=== PATIENT | female | born 1970 | race Caucasian/White ===

== ENCOUNTER → 2017-12-14 08:00 | Outpatient (CLI) | payer BC, SELFPAY ==
--- NOTE | 2017-12-14 08:04 | BI_ITS ---
MAMMOGRAPHY - BILATERAL SCREENING REASON FOR EXAM: Female, 47 years old. Routine annual screening examination. PERTINENT HISTORY: Non-contributory. TECHNIQUE: Digital bilateral breast abby (3D mammographic acquisition) in the CC and MLO projections. 2-D mediolateral oblique (MLO) and craniocaudad (CC) views of both breasts were obtained. CAD: Full Field Digital Mammography with Computer Added Detection was performed. COMPARISON: None. Baseline examination. FINDINGS: Breast Composition: The breasts are heterogeneously dense, which may obscure small masses. There is a 6.8 mm nodular density in the deep aspect of the right breast as seen on the MLO view only. This abuts the pectoralis muscle. This is not seen on the craniocaudad view. The patient will be called for additional views of the right breast including the exaggerated craniocaudad view and 90 degree lateral view. No other significant abnormalities are identified. BI/SCREENING MAMM (CAD), BILAT IMPRESSION: Nodular density seen in the deep portion of the right breast as described. The patient will be recalled for additional views including exaggerated craniocaudad view and 90 degree lateral view. Recall Side: Right Breast ASSESSMENT CATEGORY: BIRADS Category 0: Incomplete. Need additional imaging evaluation. A letter regarding these results will be sent to the patient by the facility within 30 days. Approximately 10% of breast cancers are not detected by mammography. A normal mammogram should not delay biopsy of a clinically suspicious abnormality. [id number] Electronically Signed: Yung Merino MD at 11:29 EDT Tel [phone], Service support ,
== END ==
PROVIDERS: Visit Provider Obstetrics & Gynecology
DX: Z12.31 Encounter for screening mammogram for malignant neoplasm of breast (principal)
CPT/HCPCS: 77063; 77067

== ENCOUNTER → 2017-12-22 09:00 | Outpatient (CLI) | payer BC, SELFPAY ==
--- NOTE | 2017-12-22 09:05 | BI_ITS ---
MAMMOGRAPHY - UNILATERAL DIAGNOSTIC: RIGHT BREAST REASON FOR EXAM: Female, 47 years old. Abnormal screening mammogram. PERTINENT HISTORY: Questionable nodular density in the deep aspect of the right breast. TECHNIQUE: 90 degree lateral as well as compression spot views and exaggerated craniocaudad views were obtained. CAD: Full Field Digital Mammography with Computer Added Detection was performed. COMPARISON: Comparison is made with prior mammogram dated December 14, 2017. FINDINGS: Breast Composition: The breasts are heterogeneously dense, which may obscure small masses. Once again, there is a 7 mm nodular density in the deep portion of the right breast at the level of the pectoralis musculature. Correlation with ultrasound is recommended. No other significant abnormalities are identified. BI/DIAG MAMM W/CAD, UNILAT IMPRESSION: Persistent small nodule seen in the deep portion of the right breast as described. Correlation with ultrasound is recommended. ASSESSMENT CATEGORY: BIRADS Category 0: Incomplete. Need additional imaging evaluation. A letter regarding these results will be sent to the patient by the facility within 30 days. Approximately 10% of breast cancers are not detected by mammography. A normal mammogram should not delay biopsy of a clinically suspicious abnormality. Electronically Signed: Yung Merino MD at 10:58 EDT Tel [phone], Service support ,
--- NOTE | 2017-12-22 09:08 | US_ITS ---
STUDY: ULTRASOUND BREAST - RIGHT REASON FOR EXAM: Female, 47 years old. Abnormal screening mammogram. TECHNIQUE: Axial and longitudinal images of the RIGHT breast were performed with a high resolution ultrasound transducer. COMPARISON: Comparison is made with prior mammogram done earlier today and December 14, 2017. FINDINGS: RIGHT Breast: The deep portion of the right breast was examined by ultrasound. There are several mildly dilated ducts in the deep portion of the breast. No solid or cystic mass lesion is seen. US/Breast Limited Unilateral IMPRESSION: Dilated ducts in the deep breast tissue. Routine annual mammographic follow-up is recommended. ASSESSMENT CATEGORY: BIRADS Category 2: Benign. A letter regarding these results will be sent to the patient by the facility within 30 days. Electronically Signed: Yung Merino MD at 10:59 EDT Tel [phone], Service support ,
== END ==
PROVIDERS: Visit Provider Obstetrics & Gynecology
DX: R92.2 Inconclusive mammogram (principal)
CPT/HCPCS: 76642; 77065

== ENCOUNTER → 2018-05-17 09:54 | Outpatient (CLI) | payer BC, SELFPAY ==
[2018-05-17 11:17] LABS: Free T3 3.1 pg/mL (2.18-3.98); T4 Free Direct 1.01 ng/dL (0.76-1.46); Thyroid Stim Hormone (TSH) 2.08 uIU/mL (0.358-3.74)
[2018-05-17 11:18] LABS: Hematocrit 39.4 % (37-47); Hemoglobin 13.4 g/dl (12.0-15.0); Mean Corpuscular Hgb 30.8 pg (27.0-32.0); Mean Corpuscular Volume 90.6 fL (81-99); Mean Platelet Vol. 9.8 fl (6.2-12.0); Platelet Count 334 K/mm3 (150-450); RBC Distribution Width CV 11.8 % (11.6-14.6); RBC Distribution Width SD 38.4 fl (35.1-43.9); Red Blood Count 4.35 M/mm3 (4.2-5.4); White Blood Count 6.2 K/mm3 (4.4-11.0)
[2018-05-17 11:24] LABS: Hemoglobin A1c 5.6 % (4.2-6.3)
[2018-05-17 11:30] LABS: Scan Indicated on CBC? Y/N NO
[2018-05-22 15:39] LABS: HPV Reflexed? NOT INDICATED
[2018-05-22 16:13] LABS: DHEA Sulfate 123.4 ug/dL (41.2-243.7)
== END ==
PROVIDERS: Visit Provider Obstetrics & Gynecology
DX: R53.81 Other malaise (principal); L65.9 Nonscarring hair loss, unspecified; R10.2 Pelvic and perineal pain
CPT/HCPCS: 36415; 82533; 82627; 83036; 84439; 84443; 84481; 85027; 88175; 82626; G0145

== ENCOUNTER → 2019-07-05 10:22 | Outpatient (CLI) | payer BC, SELFPAY ==
[2019-07-05 10:58] LABS: Hemoglobin 12.9 g/dL (12.0-15.0); Mean Corp Hgb Conc 33.9 g/dL (32-36); Mean Corpuscular Hgb 30.7 pg (27.0-32.0); Mean Corpuscular Volume 90.5 fL (81-99); Mean Platelet Vol. 9.5 fl (6.2-12.0); Platelet Count 296 K/mm3 (150-450); RBC Distribution Width CV 12.4 % (11.6-14.6); RBC Distribution Width SD 40.9 fl (35.1-43.9); White Blood Count 8.6 K/mm3 (4.4-11.0)
[2019-07-05 11:35] LABS: Hemoglobin A1c 5.2 % (4.2-6.3)
[2019-07-05 11:36] LABS: Cholesterol 184 mg/dL (200); Glucose 90 mg/dL (74-106); High Density Lipoprotein 65 mg/dL; Thyroid Stim Hormone (TSH) 2.09 uIU/mL (0.358-3.74); Triglycerides 101 mg/dL; Very Low Density Lipoprotein 20 mg/dL (5-40)
[2019-07-10 10:01] LABS: HPV Reflexed? NOT INDICATED
== END ==
PROVIDERS: Visit Provider Obstetrics & Gynecology
DX: Z00.00 Encounter for general adult medical examination without abnormal findings (principal); L65.8 Other specified nonscarring hair loss; R53.81 Other malaise; Z12.4 Encounter for screening for malignant neoplasm of cervix
CPT/HCPCS: 36415; 80061; 82947; 83036; 84443; 85027; 88175; G0145

== ENCOUNTER → 2019-07-11 15:19 | Outpatient (CLI) | payer BC, SELFPAY ==
--- NOTE | 2019-07-11 15:21 | BI_ITS ---
MAMMOGRAPHY - BILATERAL SCREENING REASON FOR EXAM: Female, 48 years old. Routine annual screening examination. PERTINENT HISTORY: Non-contributory. TECHNIQUE: Digital bilateral breast luz (3D mammographic acquisition) in the CC and MLO projections. 2-D mediolateral oblique (MLO) and craniocaudad (CC) views of both breasts were obtained. CAD: Full Field Digital Mammography with Computer Added Detection was performed. COMPARISON: Comparison is made with prior study dated December 14, 2017. FINDINGS: Breast Composition: The breasts are heterogeneously dense, which may obscure small masses. There are no dominant masses or suspicious calcifications. Once again, there is a 7 mm partially visualized nodule deep in the right breast adjacent to the pectoralis muscle. This is not seen on the craniocaudad view. A repeat ultrasound is recommended. No other significant abnormalities are identified. There has been no significant change since the prior study. BI/SCREEN MAMM (CAD) W/LUZ BILAT IMPRESSION: Stable bilateral screening mammogram. Repeat ultrasound of the right breast for assessment of the deep nodular densities recommended. ASSESSMENT CATEGORY: BIRADS Category 0: Incomplete. Need additional imaging evaluation. A letter regarding these results will be sent to the patient by the facility within 30 days. Approximately 10% of breast cancers are not detected by mammography. A normal mammogram should not delay biopsy of a clinically suspicious abnormality. [id number] Electronically Signed: Yung Merino, at 8:56 EST , Service support ,
== END ==
PROVIDERS: Referring Provider Obstetrics & Gynecology; Visit Provider Obstetrics & Gynecology
DX: Z12.31 Encounter for screening mammogram for malignant neoplasm of breast (principal)
CPT/HCPCS: 77063; 77067

== ENCOUNTER → 2019-07-13 10:59 | Outpatient (CLI) | payer BC, SELFPAY ==
--- NOTE | 2019-07-13 11:00 | US_ITS ---
STUDY: ULTRASOUND BREAST - RIGHT REASON FOR EXAM: Female, 48 years old. Abnormal screening mammogram. TECHNIQUE: Axial and longitudinal images of the RIGHT breast were performed with a high resolution ultrasound transducer. # OF IMAGES: 19 COMPARISON: Comparison is made with prior mammogram dated July 11, 2019 and prior ultrasound of the right breast dated December 22, 2017. FINDINGS: RIGHT Breast: There is evidence of a 6 mm x 6 mm x 4 mm cyst at the 3:00 position of the breast at 2 cm from nipple. The mammographic abnormality corresponds to 8 5 mm x 7 mm x 4 mm hypoechoic slightly irregular nodule at the 2:00 position of the breast at 2 cm from nipple. A biopsy recommended. US/Breast Limited Unilateral IMPRESSION: 5 mm x 7 mm x 4 mm hypoechoic slightly irregular nodule in the deep posterior aspect of the breast at the 2:00 position. A biopsy is recommended. ASSESSMENT CATEGORY: BIRADS Category 4: Suspicious - Biopsy Should Be Considered. A letter regarding these results will be sent to the patient by the facility within 30 days. Electronically Signed: Yung Merino, at 8:59 EST , Service support ,
== END ==
PROVIDERS: Referring Provider Obstetrics & Gynecology; Visit Provider Obstetrics & Gynecology
DX: N63.10 Unspecified lump in the right breast, unspecified quadrant (principal)
CPT/HCPCS: 76642

== ENCOUNTER → 2019-07-31 13:04 | Outpatient (CLI) | payer BC, SELFPAY ==
[2019-07-31 12:01] VITALS: BMI 22.8
--- NOTE | 2019-07-31 13:05 | BI_ITS ---
MAMMOGRAPHY - UNILATERAL DIAGNOSTIC: RIGHT BREAST REASON FOR EXAM: Female, 48 years old. Clip placement following ultrasound-guided breast biopsy. PERTINENT HISTORY: 7 mm partially visualized nodule in the deep right breast. TECHNIQUE: 90 degree lateral view of the right breast was obtained. CAD: Full Field Digital Mammography with Computer Added Detection was performed. COMPARISON: Comparison is made with prior mammogram dated July 11, 2019. FINDINGS: A tissue clip marker is seen within the nodular density in the deep aspect of the right breast adjacent to the pectoralis muscle. BI/DIAG MAMM W/CAD, UNILAT IMPRESSION: A tissue clip marker is seen within the deep nodular density in the right breast. ASSESSMENT CATEGORY: BIRADS Category 2: Benign. A letter regarding these results will be sent to the patient by the facility within 30 days. Approximately 10% of breast cancers are not detected by mammography. A normal mammogram should not delay biopsy of a clinically suspicious abnormality. Electronically Signed: Yung Merino, at 12:24 EST , Service support ,
== END ==
PROVIDERS: Referring Provider Surgery; Visit Provider Surgery
DX: R92.8 Other abnormal and inconclusive findings on diagnostic imaging of breast (principal)
CPT/HCPCS: 77065

== ENCOUNTER → 2019-07-31 | Outpatient (CLI) | payer BC, SELFPAY ==
[2019-07-31 12:01] VITALS: BMI 22.8
--- NOTE | 2019-07-31 12:15 | BRBX_PTH ---
PATIENT: PARKER PRICE LOC: [facility] U#:[id number] AGE/SX: 48/F ROOM: RE07/31/[address]: Dr. Tera Perez MD : 1970 BED: DIS: 07/31/2019 SPEC #: [id number] RECD: 07/31/19 16:38 STATUS: DANY MARIANO #: [id number] PAMELA: 07/31/19 12:[address]: Tera Perez DEPT: SURGICAL PATHOLOGY RECD BY: Jeff Vázquez ENTERED: 08/01/19 09:08 SP TYPE: BREAST BX OTHR DR: No Primary Care Phys Tissues: Right breast, NOS Procedures: Surgery Specimen Level IV HEADER OPERATION: Right breast biopsy PRE-OP DIAGNOSIS: Abnormal ultrasound of breast TISSUE SUBMITTED: Right breast biopsy ISCHEMIC TIME: <1 minute FIXATION TIME: 31.5 hours MICROSCOPIC DIAGNOSIS Right breast, core biopsy: Fibrocystic changes. Negative for atypia or malignancy. See comment. SJ:jimena 08/02/19 COMMENT The specimen also shows numerous blood clots and skeletal muscle tissue. Correlation with clinical, radiologic findings and appropriate follow up are necessary. MICROSCOPIC DESCRIPTION Slides are reviewed. GROSS DESCRIPTION Received in fixative is one container labeled with the patient's name and designated right breast biopsy. The specimen consists of multiple elongated fragments of chaney-yellow fibroadipose tissue mixed with blood clot that in aggregate measure 2.5 x 1.5 x 0.1 cm. The entire specimen is submitted in one cassette. / SAUMYA:jimena 08/01/19 TC:5 CPT: 76735
== END | disposition home or self-care (01) ==
LOC: LABSPEC 08-01 09:06
PROVIDERS: Visit Provider Surgery
DX: R92.8 Other abnormal and inconclusive findings on diagnostic imaging of breast (principal)
CPT/HCPCS: 88305

== ENCOUNTER → 2021-03-19 10:35 | Outpatient (CLI) | payer BC, SELFPAY ==
[2021-03-19 11:42] LABS: Hematocrit 44.1 % (37-47); Hemoglobin 14.8 g/dL (12.0-15.0); Mean Corp Hgb Conc 33.6 g/dL (32-36); Mean Corpuscular Hgb 31.2 pg (27.0-32.0); Mean Corpuscular Volume 92.8 fL (81-99); Mean Platelet Vol. 9.9 fl (6.2-12.0); Platelet Count 371 K/mm3 (150-450); RBC Distribution Width CV 11.9 % (11.6-14.6); RBC Distribution Width SD 41.1 fl (35.1-43.9); Red Blood Count 4.75 M/mm3 (4.2-5.4); White Blood Count 7.6 K/mm3 (4.4-11.0)
[2021-03-19 12:00] LABS: Hemoglobin A1c 5.1 % (3.8-5.6)
[2021-03-19 12:20] LABS: Cholesterol 231 mg/dL (200); High Density Lipoprotein 61 mg/dL; Thyroid Stim Hormone (TSH) 1.39 uIU/mL (0.358-3.74); Triglycerides 132 mg/dL; Very Low Density Lipoprotein 26 mg/dL (5-40)
[2021-03-25 09:28] LABS: HPV APTIMA, High Risk Negative (Negative)
[2021-03-25 09:34] LABS: HPV Reflexed? YES, CHARGE PATIENT
== END ==
PROVIDERS: Visit Provider Obstetrics & Gynecology
DX: L65.8 Other specified nonscarring hair loss (principal); N92.6 Irregular menstruation, unspecified; Z12.4 Encounter for screening for malignant neoplasm of cervix
CPT/HCPCS: 80061; 83036; 84443; 85027; 87624; 88175; G0145

== ENCOUNTER → 2021-03-26 08:54 | Outpatient (CLI) | payer BC, SELFPAY ==
[2021-03-26 11:14] LABS: Cholesterol 198 mg/dL (200); High Density Lipoprotein 55 mg/dL; Triglycerides 138 mg/dL; Very Low Density Lipoprotein 28 mg/dL (5-40)
== END ==
PROVIDERS: Visit Provider Obstetrics & Gynecology
DX: E78.5 Hyperlipidemia, unspecified (principal); Z13.9 Encounter for screening, unspecified
CPT/HCPCS: 36415; 80061

== ENCOUNTER → 2021-04-09 14:09 | Outpatient (CLI) | payer BC, SELFPAY ==
--- NOTE | 2021-04-09 | EMB_PTH ---
PATIENT: PARKER PRICE LOC: [facility] U#:[id number] AGE/SX: 54/F ROOM: RE04/09/[address]: Dr. Ron Wilkins MD : 1970 BED: DIS: SPEC #: [id number] RECD: 04/10/21 08:08 STATUS: DANY MARIANO #: [id number] PAMELA: 04/09/21 00:[address]: Ron Wilkins DEPT: SURGICAL PATHOLOGY RECD BY: Maurice Marino ENTERED: 04/10/21 08:08 SP TYPE: ENDOM BX/C JULIO DR: No Primary Care Phys Tissues: Endometrium, NOS Procedures: Surgery Specimen Level IV HEADER OPERATION: Endometrial biopsy PRE-OP DIAGNOSIS: R93.8 TISSUE SUBMITTED: Endometrial biopsy MICROSCOPIC DIAGNOSIS Endometrial biopsy: Proliferative endometrium. SJ:jimena 04/13/2021 MICROSCOPIC DESCRIPTION Slides are reviewed. GROSS DESCRIPTION Received in fixative is one container labeled with the patient's name and designated EM biopsy. The specimen consists of multiple fragments of hemorrhagic soft tissue that in aggregate measure 1.5 x 1 x 0.2 cm. The specimen is totally submitted in one cassette. / SJ:rg 04/10/21 TC:4 CPT: [id number]
== END ==
PROVIDERS: Visit Provider Obstetrics & Gynecology
DX: R93.89 Abnormal findings on diagnostic imaging of other specified body structures (principal)
CPT/HCPCS: 88305

== ENCOUNTER → 2021-05-06 14:05 | Outpatient (CLI) | payer BC, SELFPAY ==
--- NOTE | 2021-05-06 14:08 | BI_ITS ---
MAMMOGRAPHY - BILATERAL SCREENING REASON FOR EXAM: Female, 50 years old. Routine annual screening examination. PERTINENT HISTORY: Non-contributory. Prior right ultrasound-guided breast biopsy. TECHNIQUE: Digital bilateral breast luz (3D mammographic acquisition) in the CC and MLO projections. 2-D mediolateral oblique (MLO) and craniocaudad (CC) views of both breasts were obtained. CAD: Full Field Digital Mammography with Computer Added Detection was performed. COMPARISON: Comparison is made with prior examination dated 07/11/2019 and 12/22/2017. FINDINGS: Breast Composition: The breasts are heterogeneously dense, which may obscure small masses. There are no dominant masses or suspicious calcifications. A tissue clip marker is once again seen in the deep upper slightly medial aspect of the left breast. Stable 6 mm partially visualized nodule deep in the right breast adjacent to the pectoralis muscle. This is in the deep mid central portion of the breast. No other significant abnormalities are identified. BI/SCRN MAMM (CAD)W/LUZ BILAT IMPRESSION: Stable bilateral screening mammogram. Yearly follow-up mammogram recommended. (A) ASSESSMENT CATEGORY: BIRADS Category 2: Benign. A letter regarding these results will be sent to the patient by the facility within 30 days. Approximately 10% of breast cancers are not detected by mammography. A normal mammogram should not delay biopsy of a clinically suspicious abnormality. [id number] Electronically Signed: Yung Merino MD at 15:20 EST , Service support ,
== END ==
PROVIDERS: Referring Provider Obstetrics & Gynecology; Visit Provider Obstetrics & Gynecology
DX: Z12.31 Encounter for screening mammogram for malignant neoplasm of breast (principal)
CPT/HCPCS: 77063; 77067